=== PATIENT | male | born 1965 | race Two or more races ===

== ENCOUNTER → 2025-05-15 08:43 | Outpatient (CLI) | payer OTHER ==
[~2025-05-15 08:43] MED LIST: ACID REDUCER20 M1 PO; UROXATRAL10 MG PO
[2025-05-15 09:35] LABS: BASO % 0.5 % (0.1-1.2); EOS # 0.03 (0.04-0.54); EOS % 0.5 % (0.7-7.0); LYMPH # 2.49 (1.18-3.74); LYMPH % 44.9 % (19.3-53.1); MEAN PLATELET VOLUME 9.00 fl (9.4-12.4); MONO # 0.33 (0.24-0.82); MONO % 6.0 % (4.7-12.5); NEUT # 2.65 (1.56-6.13); NEUT % 47.9 % (34.0-71.1); RED CELL DISTRIBUTION WIDTH 14.2 % (11.6-14.4)
[2025-05-15 09:53] LABS: URINE APPEARANCE Clear; URINE BILIRRUBIN Negative (NEGATIVE); URINE BLOOD Negative; URINE COLOR Yellow; URINE GLUCOSE Negative (NEGATIVE); URINE KETONE Negative (NEGATIVE); URINE LEUKOCYTE Negative; URINE NITRATE Negative; URINE PROTEIN Negative (NEGATIVE); URINE UROBILINOGEN 0.2 E.U./dl
[2025-05-15 09:56] LABS: URINE BACTERIA 1.2 uL (0.0-1933); URINE CAST 0.00 uL (0.0-1.40); URINE EPITHELIAL CELLS 0.6 uL (0.0-38.8); URINE RBC 1.6 uL (0.0-20.8); URINE WBC 1.3 uL (0.0-23.2)
[2025-05-15 09:57] LABS: INR 1.05
[2025-05-15 10:20] LABS: COL EPI 112 SECONDS (82-175)
[2025-05-15 10:21] LABS: ALT/SGPT 43.0 U/L (12-78); AST/SGOT 25.0 U/L (15-37); BILIRUBIN TOTAL 0.47 mg/dL (0.3-1.2); BUN CREA RATIO 21.0 (7.0-25.0); CREATININE SERUM 0.78 mg/dL (0.70-1.30); GFR 101.88; GLOBULINA 3.7 G/DL (2.4-3.5); GLUCOSE FASTING 106.0 mg/dL (65-100); OSMOLALITY SERUM 285.0 MOSM/KG (275-295)
== END | disposition home or self-care (01) ==
LOC: RAD 08:43
PROVIDERS: ATTEND Orthopaedic Surgery
DX: D64.9 Anemia, unspecified (principal); E88.89 Other specified metabolic disorders; D68.8 Other specified coagulation defects; N39.0 Urinary tract infection, site not specified; Z22.322 Carrier or suspected carrier of Methicillin resistant Staphylococcus aureus; E11.9 Type 2 diabetes mellitus without complications; I10 Essential (primary) hypertension; Z76.89 Persons encountering health services in other specified circumstances

== ENCOUNTER 2025-05-30 09:00 | Day surgery (SDC) | payer OTHER ==
[2025-05-29 15:54] VITALS: BP 145/89
[~2025-05-30] VITALS: Ht 167.6 cm; Wt 90.7 kg
[2025-05-30] MEDS ORDERED: CIPROFLOXACIN IN 5 % DEXTROSE 400 MG/200 ML PIGGYBAG IV ONE (09:42)
[2025-05-30] MEDS ORDERED: BUPIVACAINE HCL/MPF 0.5% 30ML VIAL ONE (12:17)
== END 2025-05-30 22:20 | disposition home or self-care (01) ==
LOC: CIR.AMB 09:00 → O/R 17:50
PROVIDERS: ATTEND Orthopaedic Surgery
DX: M20.11 Hallux valgus (acquired), right foot (principal); M89.9 Disorder of bone, unspecified
CPT/HCPCS: 28299; L8699

== ENCOUNTER 2025-06-21 07:17 | Outpatient (CLI) | payer OTHER | END 2025-06-21 07:23 | disposition home or self-care (01) | LOC: RAD 07:17 | PROVIDERS: ATTEND Orthopaedic Surgery | DX: M20.11 Hallux valgus (acquired), right foot (principal) ==